=== PATIENT | female | born 1990 | race Hispanic/Latino ===

== ENCOUNTER 2017-03-28 09:00 | Emergency (ER) | payer OTHER ==
[~2017-03-28] VITALS: Ht 157.5 cm; Wt 100.0 kg
[~2017-03-28 09:00] MED LIST: ACYCLOVIR400 MG OR; AMOXICILLIN500 MG PO; BP PO; KEPPRA1000 MG PO; KEPPRA500 MG OR; LEVETIRACETAM1000 MG PO; TAM75CAP PO; TYLENOL500 MG OR; ZOFRAN4 MG OR; ZYRTEC10 MG PO
[2017-03-28] MEDS ORDERED: CORTISPORIN OTI10 ML AD (09:24)
[2017-03-28] MEDS ORDERED: AMOXICILLIN500 MG PO (09:25)
== END 2017-03-28 09:34 | disposition home or self-care (01) | DRG 156 ==
LOC: ED 09:00
DX: T16.1XXA Foreign body in right ear, initial encounter (principal); X58.XXXA Exposure to other specified factors, initial encounter; Y92.009 Unspecified place in unspecified non-institutional (private) residence as the place of occurrence of the external cause

== ENCOUNTER 2018-04-10 10:23 | Emergency (ER) | payer OTHER ==
[~2018-04-10] VITALS: Ht 157.5 cm; Wt 92.0 kg
[~2018-04-10 10:23] MED LIST changes: +CORTISPORIN OTI10 ML AD
[2018-04-10] MEDS ORDERED: ZPAK PO (11:04)
[2018-04-10 11:15] VITALS: BP 137/94
== END 2018-04-10 11:15 | disposition home or self-care (01) ==
LOC: ED 10:23
DX: J06.9 Acute upper respiratory infection, unspecified (principal); R05 Cough; R09.81 Nasal congestion

== ENCOUNTER 2018-09-15 18:06 | Emergency (ER) | payer MEDICAID ==
[~2018-09-15] VITALS: Ht 157.5 cm; Wt 92.8 kg
[~2018-09-15 18:06] MED LIST changes: +ZPAK PO
[2018-09-15 19:07] LABS: HEMATOCRIT 47.8 % (37.0-47.0); HEMOGLOBIN 15.9 g/dl (12.0-16.0); IMMATURE GRANULOCYTES 0.3 % (0.0-5.0); MEAN CELL VOLUME 87.4 fL CALC (80.0-100.0); MEAN CORPUSCULAR HGB 29.1 pG CALC (26.0-32.0); MEAN CORPUSCULAR HGB CONC 33.3 g/L CALC (32.0-36.0); NEUT# 7.43 thou/uL (2.00-7.15); RED BLOOD COUNT 5.47 mill/uL (4.20-5.60)
[2018-09-15 19:31] LABS: ALBUMIN 4.8 g/dL (3.2-5.0); ALKALINE PHOSPHATASE 88 u/l (38-126); ANION GAP 19 (6-22 (CALC)); BILIRUBIN, TOTAL 0.4 mg/dL (0.0-1.4); BUN 10 mg/dL (7-17); BUN/CREATININE RATIO 18 (12-20 (CALC)); CARBON DIOXIDE 23 mmol/l (22-30); CHLORIDE 101 mmol/l (95-108); CREATININE 0.6 mg/dL (0.5-1.0); GFR > 60 ML/MIN (>=60 (CALC)); GFR FOR AFR.AMER. > 60 ML/MIN (>=60 (CALC)); POTASSIUM 3.9 mmol/l (3.5-5.1); SGOT/AST 45 u/l (14-36); SODIUM 140 mmol/l (137-146); TOTAL PROTEIN 8.7 g/dL (6.3-8.2)
[2018-09-15] MEDS ORDERED: AMOXICILLIN500 MG PO (19:54)
[2018-09-15 20:27] VITALS: BP 128/83
== END 2018-09-15 20:27 | disposition home or self-care (01) ==
LOC: ED 18:06
PROVIDERS: Emergency Medicine
DX: J02.9 Acute pharyngitis, unspecified (principal); I10 Essential (primary) hypertension; F79 Unspecified intellectual disabilities; R11.10 Vomiting, unspecified; R50.9 Fever, unspecified

== ENCOUNTER 2019-05-21 17:40 | Emergency (ER) | payer MEDICAID ==
[~2019-05-21] VITALS: Ht 157.5 cm; Wt 100.0 kg
[2019-05-21] MEDS ORDERED: LEVETIRACETAM500 MG PO (18:01)
[2019-05-21 19:18] LABS: HEMATOCRIT 43.5 % (37.0-47.0); HEMOGLOBIN 14.1 g/dl (12.0-16.0); IMMATURE GRANULOCYTES 0.2 % (0.0-5.0); MEAN CELL VOLUME 88.4 fL CALC (80.0-100.0); MEAN CORPUSCULAR HGB 28.7 pG CALC (26.0-32.0); MEAN CORPUSCULAR HGB CONC 32.4 g/L CALC (32.0-36.0); NEUT# 6.19 thou/uL (2.00-7.15); RED BLOOD COUNT 4.92 mill/uL (4.20-5.60); RED CELL DISTRI WIDTH 12.8 % (11.5-15.5)
[2019-05-21 19:19] LABS: URINE BILIRUBIN - DIPSTICK NEGATIVE (NEGATIVE); URINE BLOOD DIPSTICK MODERATE (NEGATIVE); URINE COLOR YELLOW; URINE GLUCOSE - DIPSTICK NEGATIVE (NEGATIVE); URINE KETONE NEGATIVE (NEGATIVE); URINE LEUK ESTERASE MODERATE (NEGATIVE); URINE NITRITE - DIPSTICK NEGATIVE (Negative); URINE PROTEIN - DIPSTICK NEGATIVE (NEG-TRACE); URINE SPECIFIC GRAVITY <=1.005; URINE UROBILINOGEN - DIPSTICK 0.2 E.U./dL (0.2)
[2019-05-21 19:28] LABS: URINE BACTERIA RARE hpf; URINE SQUAMOUS EPITHELIAL CELL FEW EPI/hpf (0-FEW)
[2019-05-21] MEDS ORDERED: BACTRIM DS1 TAB PO (19:59)
[2019-05-21 20:10] VITALS: BP 141/74
== END 2019-05-21 20:10 | disposition home or self-care (01) ==
LOC: ED 17:40
PROVIDERS: Family Medicine
DX: N39.0 Urinary tract infection, site not specified (principal); B96.4 Proteus (mirabilis) (morganii) as the cause of diseases classified elsewhere; R06.7 Sneezing; R50.9 Fever, unspecified